=== PATIENT | female | born 1955 | race Caucasian/White ===

== ENCOUNTER 2019-02-11 05:55 | Emergency (ER) | payer BC ==
[2019-02-11 08:07] VITALS: BP 161/101
--- NOTE | 2019-02-11 08:07 | ED ---
Back Pain - HPI Summary HPI Summary: Patient is a 63-year-old female presenting to the ED with neck and upper back pain. She states on Saturday, 3 days ago she was walking her dog when she was pulled forward, falling backwards and hitting her head and neck. She states she felt she would improve over the next few days, however continues to have discomfort. She does state her neck feels somewhat improved, but now is endorsing some intermittent numbness and tingling radiating down the right arm and effecting the thumb, index and middle finger. Full range of motion still intact. Denies any color or temperature changes. Denies any limitations with range of motion of rotating to the right, left, flexion or extension. Denies any mid or low back pain. No signs of trauma. - History of Current Complaint Chief Complaint: EDBackInjuryPain Stated Complaint: FELL I THINK I NEED AN XRAY OF MY BACK PER PT Time Seen by Provider: 02/11/19 06:04 Hx Obtained From: Patient Onset/Duration: Sudden Onset Onset/Duration: Started Hours Ago Timing: Constant Back Pain Location: Is Discrete @ - left neck and arm Severity Initially: Moderate Severity Currently: Moderate Pain Intensity: 8 Pain Scale Used: 0-10 Numeric Aggravating Symptom(s): Movement, Lifting Alleviating Symptom(s): Rest, Position Associated Signs And Symptoms: Negative: Swelling, Redness, Bruising, Fever, Weakness, Numbness - Risk Factors AAA Risk Factors: Negative TAD Risk Factors: Negative Cauda Equina Risk Factors: Negative - Allergies/Home Medications Allergies/Adverse Reactions: Allergies Allergy/AdvReac Type Severity Reaction Status Date / Time aspirin Allergy Palpitation Verified 02/11/19 06:49 s erythromycin base Allergy Unknown Verified 02/11/19 06:49 Reaction Details ibuprofen Allergy Palpitation Verified 02/11/19 06:49 s Home Medications: Home Medications Acetaminophen [Tylenol Extra Strength] 500 - 1,000 mg PO Q8H PRN 02/11/19 [ History Confirmed 02/11/19] Rosuvastatin Calcium [Crestor] 40 mg PO DAILY 02/11/19 [History Confirmed ] PMH/Surg Hx/FS Hx/Imm Hx Previously Healthy: Yes - Immunization History Hx Pertussis Vaccination: No Immunizations Up to Date: Yes Infectious Disease History: No Infectious Disease History: Denies: Traveled Outside the [place] in Last 30 Days - Social History Occupation: Employed Full-time Lives: With Family Alcohol Use: Daily Hx Substance Use: No Substance Use Type: Reports: None Smoking Status (MU): Never Smoked Tobacco Review of Systems Constitutional: Negative Negative: Fever, Chills, Fatigue, Skin Diaphoresis Negative: Palpitations, Chest Pain Negative: Shortness Of Breath, Cough Genitourinary: Negative Positive: no symptoms reported, see HPI Positive: Arthralgia - left neck and arm pain. Negative: Myalgia Negative: Headache, Weakness Psychological: Normal All Other Systems Reviewed And Are Negative: Yes Physical Exam Triage Information Reviewed: Yes Vital Signs On Initial Exam: Initial Vitals Temp Pulse Resp BP Pulse Ox 98.3 F 82 16 151/85 98 02/11/19 06:07 02/11/19 06:07 02/11/19 06:07 02/11/19 06:07 02/11/19 06:07 Vital Signs Reviewed: Yes Appearance: Positive: Well-Appearing, Well-Nourished Skin: Positive: Skin Color Reflects Adequate Perfusion Head/Face: Positive: Normal Head/Face Inspection Eyes: Positive: EOMI, Conjunctiva Clear Neck: Positive: Nontender, No Lymphadenopathy Respiratory/Lung Sounds: Positive: Clear to Auscultation, Breath Sounds Present Cardiovascular: Positive: RRR Musculoskeletal: Positive: Pain @ - left neck and arm pain Neurological: Positive: Speech Normal Psychiatric: Positive: Affect/Mood Appropriate Diagnostics - Vital Signs Vital Signs Temp Pulse Resp BP Pulse Ox 02/11/19 06:07 98.3 F 82 16 151/85 98 - Laboratory Lab Statement: Any lab studies that have been ordered have been reviewed, and results considered in the medical decision making process. Back Pain Course/Dx - Course Course Of Treatment: Patient is a 63-year-old female presenting to the ED with neck and upper back pain. She states on Saturday, 3 days ago she was walking her dog when she was pulled forward, falling backwards and hitting her head and neck. She states she felt she would improve over the next few days, however continues to have discomfort. She does state her neck feels somewhat improved, but now is endorsing some intermittent numbness and tingling radiating down the right arm and effecting the thumb, index and middle finger. Full range of motion still intact. Denies any color or temperature changes. Denies any limitations with range of motion of rotating to the right, left, flexion or extension. Denies any mid or low back pain. No signs of trauma. On physical examination there are no signs of trauma, no abrasions, patient able to rotate about the neck, flex and extend. Endorsing numbness and tingling to the thumb, index and middle finger of the left hand, this is intermittent. Denies any limitations with range of motion. CT cervical and CT thoracic spine obtained which shows no acute findings of fracture. Discussed results with the patient. Patient states she would like to follow up with her chiropractor. Declines ibuprofen and heat while in the ED. Patient denies any headache, head pain, visual changes, confusion, memory loss. CT brain is obtained for these reasons. - Diagnoses Differential Diagnosis/HQI/PQRI: Positive: Compressive Cord Syndrome, Herniated Disc, Strain, Sprain Provider Diagnoses: Cervical radiculopathy Discharge - Sign-Out/Discharge Documenting (check all that apply): Patient Departure Patient Received Moderate/Deep Sedation with Procedure: No - Discharge Plan Condition: Stable Disposition: HOME Patient Education Materials: Cervical Radiculopathy (ED) Referrals: Erick BROOKE,Cathie Choudhary [Primary Care Provider] - Additional Instructions: Tylenol and moist heat to the area If symptoms worsen or persist - return to the ED - Billing Disposition and Condition Condition: STABLE Disposition: Home
== END 2019-02-11 08:06 | disposition home or self-care (01) ==
LOC: ED 05:55
DX: M54.12 Radiculopathy, cervical region (principal); M50.322 Other cervical disc degeneration at C5-C6 level; M51.34 Other intervertebral disc degeneration, thoracic region; M47.814 Spondylosis without myelopathy or radiculopathy, thoracic region; I70.209 Unspecified atherosclerosis of native arteries of extremities, unspecified extremity; E04.2 Nontoxic multinodular goiter; Z88.6 Allergy status to analgesic agent; Z88.1 Allergy status to other antibiotic agents
CPT/HCPCS: 72125; 72128; 99282